=== PATIENT | female | born 1970 | race Caucasian/White ===

== ENCOUNTER 2023-06-04 08:14 | Emergency (ER) | payer OTHER ==
[~2023-06-04] VITALS: Ht 160 cm; Wt 71.0 kg
[~2023-06-04 08:14] MED LIST: AML5T PO; AZIL1TAB PO
[2023-06-04 08:44] VITALS: PULSE 85
[2023-06-04 09:50] LABS: Basophils # (auto) 0 10 ^3/uL (0-0.2); Basophils % (auto) 0.3 % (0.0-2.0); Eosinophils # (auto) 0 10 ^3/uL (0-0.8); Eosinophils % (auto) 0.1 % (0.0-7.0); Hematocrit 44.8 % (36.0-46.0); Hemoglobin 15.1 g/dL (12.2-16.2); Lymphocytes # (auto) 1.8 10 ^3/uL (0.4-5.4); Mean Corpuscular Hemoglobin 30.4 pg (28.0-32.0); Mean Corpuscular Hgb Conc. 33.7 g/dL (32.0-36.0); Mean Corpuscular Volume 90.1 fL (80.0-100.0); Monocytes # (auto) 0.8 10 ^3/uL (0-1.3); Monocytes % (auto) 9.5 % (0.0-12.0); Neutrophils # (auto) 6.1 10 ^3/uL (1.6-8.6); Neutrophils % (auto) 69.1 % (37.0-80.0); Nucleated Red Blood Cells % 0.1 %; Red Blood Cells 4.97 10^6/uL (4.0-5.20); Red Cell Distribution Width 12.8 % (11.8-14.3); White Blood Cell 8.8 10^3/uL (4.4-10.8)
[2023-06-04 10:01] LABS: Chloride 105 mmol/L (98-107); Potassium 3.8 mmol/L (3.5-5.1); Sodium 137 mmol/L (136-145)
[2023-06-04 10:02] LABS: Anion Gap 4 (5-15); Calcium 9.4 mg/dL (8.5-10.1); Carbon Dioxide 28 mmol/L (20-30)
[2023-06-04 10:07] LABS: BUN/Creatinine Ratio 8.5 (10.0-20.0); Blood Urea Nitrogen 6 mg/dL (9-23); Glucose 111 mg/dL (74-106)
[2023-06-04] MEDS ORDERED: METH4PAK PO (10:36)
[2023-06-04] MEDS ORDERED: AZIT1POW PO (10:36)
[2023-06-04] MEDS: cloNIDine HCL 0.1 MG TAB PO ONE (11:14)
[2023-06-04 11:16] VITALS: BP 176/114; RESP 18; TEMP 98.6; O2SAT 96
== END 2023-06-04 11:18 | disposition home or self-care (01) ==
LOC: ER 08:14
DX: J20.9 Acute bronchitis, unspecified (principal); I10 Essential (primary) hypertension; Z87.891 Personal history of nicotine dependence
CPT/HCPCS: 36415; 71046; 80048; 83880; 85025; 85379; 93005